=== PATIENT | female | born 1995 | race Caucasian/White ===

== ENCOUNTER 2019-05-19 17:17 | Emergency (ER) | payer MEDICAID ==
[~2019-05-19] VITALS: Ht 167.6 cm; Wt 72.6 kg
[2019-05-19 17:36] VITALS: BP 125/79
--- NOTE | 2019-05-19 17:38 | NUR ---
TRIAGE COMPLETE. TO WAIT IN LOBBY FOR BED IN ED. VSS.
--- NOTE | 2019-05-19 18:37 | NUR ---
PT CALLED IN ER LOBBY NO ANSWER.
--- NOTE | 2019-05-19 18:37 | NUR ---
PATIENT LEFT WITHOUT BEING SEEN BY DR. NOVA. NO FURTHER CARE PROVIDED FOR PATIENT.
== END 2019-05-19 18:37 | disposition left against medical advice (07) ==
LOC: MED 17:17
DX: R11.2 Nausea with vomiting, unspecified (principal); R19.7 Diarrhea, unspecified; Z53.21 Procedure and treatment not carried out due to patient leaving prior to being seen by health care provider